=== PATIENT | female | born 1960 | race African-American/Black ===

== ENCOUNTER 2020-11-18 21:17 | Emergency (ER) | payer OTHER ==
[~2020-11-18] VITALS: Ht 162.6 cm; Wt 60.8 kg
[2020-11-18] MEDS ORDERED: FORTAMET500 MG PO (21:43)
[2020-11-18] MEDS ORDERED: SIMVASTATIN5 MG PO (21:43)
== END 2020-11-18 23:52 | disposition home or self-care (01) ==
LOC: ER 21:17
DX: H43.392 Other vitreous opacities, left eye (principal); R51.9 Headache, unspecified; M54.2 Cervicalgia